=== PATIENT | male | born 1980 | race Caucasian/White ===

== ENCOUNTER 2024-09-16 16:37 | Emergency (ER) | payer OTHER, SELFPAY ==
--- OUTSIDE RECORDS SUMMARY | 2024-09-16 16:39 | XMS_ITS | Clinical Summary ---
Author Organization [facility] Address [address] [place] [id number] Care Team Providers Care Marine Electrician Helper Name Role Phone Susan Zavala MD Primary Care Provider [phone] Allergies No known active allergies Medications FLUoxetine (PROZAC) 40 MG capsuleIndications: Anxiety,Moderate episode of recurrent major depressive disorder (CMS/HCC) Take 1 capsule (40 mg total) by mouth daily. 30 capsule 2 2 Active atorvastatin (LIPITOR) 40 MG tabletIndications:M ixed hyperlipidemia Take 1 tablet (40 mg total) by mouth nightly at bedtime. 90 tablet 1 2 Active buPROPion SR (WELLBUTRIN SR) 150 MG 12 hr tabletIndications:T obacco use,Moderate episode of recurrent major depressive disorder (CMS/HCC) Take 1 tablet (150 mg total) by mouth 2 (two) times daily. 180 tablet 1 2 Active nicotine (NICODERM CQ) 21 MG/24HRIndications: Tobacco use Place 1 patch (21 mg total) onto the skin daily. 28 patch 11 2 Active Active Problems Problem Noted Date Diagnosed Date Prediabetes 06/16/2021 Anxiety 06/15/2021 Moderate episode of recurrent major depressive d isorder 06/15/2021 Overview (06/15/2021): Currently on fluoxetine. Denies any suicidal ideations or intentions to harm. Close follow-up with PCP. Primary hypertension 06/15/2021 Tobacco use 06/15/2021 Mixed hyperlipidemia 06/15/2021 Family History Medical History Relation Comments Cancer Maternal Grandmother Early Mother Relation Status Comments Maternal Grandmother Mother Social History Tobacco Use Types Packs/Day Years Used Date Smoking Tobacco: Every Day Cigarettes 1 24 Smokeless Tobacco: Never Tobacco Cessation:Ready to Q uit: Yes; Counseling Given: Yes Comments:counseled by Dr Zavala Alcohol Use Standard Drinks/Week Comments Not Currently 0 (1 standard drink = 0.6 oz pur e alcohol) PHQ-2 Answer Date Recorded PHQ-2 Score - If the patient scores above 3, please move on to questions 3-9 1 09/20/2021 Sex and Gender Information Value Date Recorded Sex Assigned at Not on file Legal Sex 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 Gender Identity Male 06/14/2021 4:21 PM CDT Sexual Orientation Straight 06/14/2021 4: 21 PM CDT Last Filed Vital Signs Vital Sign Reading Time Taken Comments Blood Pressure 120/77 12/22/2021 7:06 AM CDT Pulse 91 12/22/2021 7:06 AM CDT Temperature 37.1 C (98.7 F) 12/22/2021 7:06 AM CDT Respiratory Rate 18 12/22/2021 7:06 AM CDT Oxygen Saturation 98% 12/22/2021 7:06 AM CDT Inhaled Oxygen Concentration - - Weight 90.7 kg (200 lb) 12/22/2021 7:06 AM CDT Height 175.3 cm (5' 9) 12/22/2021 7:06 AM CDT Body Mass Index 29.53 12/22/2021 7:06 AM CDT Plan of Treatment Health Maintenance Due Date Last Done Comments DTaP, Tdap and Td Vaccines ( 1 - Tdap) 10/24/1998 Hepatitis B Vaccines (1 of 3 - 19+ 3-dose series) 10/24/1998 Pneumococcal Vaccine: Pediat rics (0 to 5 Years) and At-Risk Patients (6 to 49 Years) (1 of 2 - PCV) 10/24/1998 Annual Physical 06/15/2022 06/15/2021 COVID-19 Vaccine ( - 2023-2 5 season) 2023 Hepatitis C Completed 06/15/2021 HPV Vaccines Aged Out No longer eligi ble based on patient's age to complete this topic Meningococcal B Vaccine Aged Out No l onger eligible based on patient's age to complete this topic Meningococcal Vaccine Aged Out No maryann erlin eligible based on patient's age to complete this topic RSV Immunizations Under 20 Months Aged Out No longer eligible based on patient's age to complete this topic Procedures Procedure Name Priority Date/Time Associated Diagnosis Comments HEPATITIS C ANTIBODY Routine 06/15/2021 2:09 PM CDT Annual physical exam Encounter for medical examination to establish care General medical exam Encounter for hepatitis C screening test for low risk patient from Last 3 Months or Most Recently Relevant to Health Maintenance Results * HEPATITIS C ANTIBODY (06/15/2021 2:09 PM CDT) HEPATITIS C AB NON-REACTI VE NON-REACT CIRILO 06/15/2021 9:42 PM CDT [facility] Comment: ANTIBODIES TO HCV NOT DETECTED. DOES NOT EXCLUDE THE POSSIBILITY OF EXPOSURE TO HCV. 06/15/2021 2:09 PM CDT Susan Zavala MD LABORATORY Final Result [facility] [address] [place] [address], [id number] from Last 3 Months or Most Recently Relevant to Health Maintenance Insurance [employer] Care Teams Marine Electrician Helper Relationship Specialty Start Date End Date Susan Zavala MD [address] [facility] [address] [place] [address] PCP - General INTERNAL MEDICINE 06/15/21
--- OUTSIDE RECORDS SUMMARY | 2024-09-16 16:39 | XMS_ITS | Encounter Summary ---
Author Organization [facility] Address [address] [place] [id number] Care Team Providers Care Cosmetology Educator Name Role Phone Susan Zavala MD Primary Care Provider [phone] Encounter Details Date Type Department Care Team (Late st Contact Info) Description 06/13/2022 [employer] Message [facility] Patient Accounts [address] [place] [address] [facility] Monthly Credit Card Payment Social History Tobacco Use Types Packs/Day Years Used Date Smoking Tobacco: Every Day Cigarettes 1 24 Smokeless Tobacco: Never Comments:counseled by Dr Zhanna magana Alcohol Use Standard Drinks/Week Comments Not Currently 0 (1 standard drink = 0.6 oz pur e alcohol) PHQ-2 Answer Date Recorded PHQ-2 Score - If the patient scores above 3, please move on to questions 3-9 1 09/20/2021 Sex and Gender Information Value Date Recorded Sex Assigned at Not on file Legal Sex Male 9:12 AM DISABILITY COORDINATOR Gender Identity Male 06/14/2021 4:21 PM CDT Sexual Orientation Straight 06/14/2021 4: 21 PM CDT documented as of this encounter Plan of Treatment Not on file documented as of this encounter Visit Diagnoses Not on filedocumented in this encounter Additional Health Concerns Assessment Noted Time PHQ-9 Depression Total Score: 10 022 1:58 PM CDT documented as of this encounter Care Teams Cosmetology Educator Relationship Specialty Start Date End Date Susan Zavala MD [address] [facility] [address] [place] [address] PCP - General INTERNAL MEDICINE 06/15/21 documented as of this encounter
--- OUTSIDE RECORDS SUMMARY | 2024-09-16 16:39 | XMS_ITS | Encounter Summary ---
Author Organization [facility] Address [address] [place] [address] Care Team Providers Care Fire Sprinkler Fitter Name Role Phone Susan Zavala MD Primary Care Provider [phone] Encounter Details Date Type Department Care Team (Late st Contact Info) Description 05/12/2022 [employer] Message [facility] Patient Accounts [address] [place] [address] [facility] Card Payment Social History [...] on file Legal Sex Male 9:12 AM FOREPART RASPER Gender Identity Male 06/14/2021 4:21 PM CDT Sexual Orientation Straight 06/14/2021 4: 21 PM CDT documented as of this encounter Plan of Treatment Not on file documented as of this encounter Visit Diagnoses Not on filedocumented in this encounter Additional Health Concerns Assessment Noted Time PHQ-9 Depression Total Score: 10 022 1:58 PM CDT documented as of this encounter Care Teams Fire Sprinkler Fitter Relationship Specialty Start Date End Date Susan Zavala MD [address] [facility] [address] [place] [address] PCP - General INTERNAL MEDICINE 06/15/21 documented as of this encounter
--- NOTE | 2024-09-16 16:45 | ED.GENADULT ---
HPI - General Adult General Chief complaint: Skin/Abscess/Foreign Body Stated complaint: Bee Sting/Left Arm Time Seen by Provider: 09/16/24 16:55 Source: patient, RN notes reviewed and old records reviewed Mode of arrival: ambulatory Limitations: no limitations History of Present Illness HPI narrative: 43-year-old male presents to the [facility] with redness, swelling to the left upper arm. States that he was mowing his grass yesterday when a black insect stung or bit him. No treatment prior to arrival has full range of motion. Area is blanchable. Related Data Allergies Allergy/AdvReac Type Severity Reaction Status Date / Time No Known Drug Allergies Allergy Mild Unknown Verified 09/16/24 16:53 Review of Systems Review of Systems: All systems reviewed & are unremarkable except as noted in HPI and below Constitutional: Constitutional: Reports no additional constitutional complaints ENT: Reports system reviewed and no additional complaints, except as documented Cardiovascular: Cardiovascular: Reports no additional cardiovascular complaints, Denies chest pain and Denies dyspnea Respiratory: Respiratory: Reports no additional respiratory complaints, Denies chest congestion, Denies cough and Denies dyspnea Musculoskeletal: Musculoskeletal: Reports no additional musculoskeletal complaints Integumentary/Breasts: Skin/Breast: Reports as per HPI PMFSH Comments At the time of my signature, I reviewed and agree with the nursing past medical, surgical, social, and family history. There is no relevant family history pertinent to the patient complaint. Exam Const: General: cooperative, healthy appearing, comfortable, no acute distress, well developed, alert and well nourished Nutritional Appearance: well nourished Orientation/consciousness: patient oriented x3 Limitations: no limitations HENMT: Head: normal to inspection Mouth: Yes Normal oral and palatal mucosa present, Yes lip normal, Yes tongue normal and Yes moist mucous membranes Eyes: General: appearance normal, both eyes and all related structures Alignment and Position: alignment normal Neck: Neck: normal visual inspection, full ROM, no lymphadenopathy and no meningeal signs Chest: Chest palpation & inspection: normal inspection of the chest Resp: Effort & Inspection: normal respiratory effort and able to speak in complete sentences Auscultation: clear to auscultation bilaterally, no crackles, no rales, no rhonchi and no wheezes Cardio: Rate: regular rate Skin: General skin exam: normal color and no rashes or lesions noted Other: Left upper arm, elbow and forearm medial aspect, erythema, mild swelling noted. Insect bite or sting to the medial upper arm. area is blanchable. Neuro: General: patient oriented x3, gait normal, moves all extremities and no meningeal signs Cognition (Neuro): normal cognition Speech: normal speech Gait exam (Neuro): Normal gait present Extrem: General: normal to inspection, full ROM, capillary refill normal and normal gait Left upper extremity: full ROM and normal capillary refill Psych: Appearance: grossly normal and well kempt Mental Status: mental status grossly normal Speech and movement: Normal speech and movement present and Clear speech present Affect: normal affect Attitude: cooperative Course Course Level of Care: Express Care Visit Vital Signs Vital signs: Vital Signs Temperature 98.3 F 09/16/24 16:48 Pulse Rate 110 H 09/16/24 16:48 Respiratory Rate 20 09/16/24 16:48 Blood Pressure 168/101 H 09/16/24 16:48 Pulse Oximetry 99 09/16/24 16:48 Oxygen Delivery Room Air 09/16/24 16:48 Temperature 98.3 F 09/16/24 16:48 Pulse Rate 110 H 09/16/24 16:48 Respiratory Rate 20 09/16/24 16:48 Blood Pressure 168/101 H 09/16/24 16:48 Pulse Oximetry 99 09/16/24 16:48 Oxygen Delivery Room Air 09/16/24 16:48 Reviewed Medical Decision Making MDM Narrative Medical decision making narrative: Patient sitting comfortably in exam room. Nontoxic, vitals stable. Patient in no acute distress Patient presents with concerns an insect sting or bite. States it occurred yesterday. No treatment prior to arrival. Area is most likely a localized allergic reaction to the sting. Patient is appropriate for outpatient treatment and follow-up. Discussed his blood pressure is elevated, needs to follow-up with primary care provider Discharge instructions reviewed with patient, as well as provided in writing per nursing staff. The instructions also include specific and strict return/GO TO THE ER as well as f/u information. All questions have been answered, and the patient deny any further questions with discharge and discharge plan. Some parts of this dictation were generated by voice recognition software and may contain typographical and/or grammatical inaccuracies. Differential Diagnosis Differential Diagnosis: cellulitis localized reaction, insect sting, insect bite Medical Records Medical records reviewed: Yes I reviewed the external patient's medical records. Vital Signs Vital Signs: Vital Signs Temperature 98.3 F 09/16/24 16:48 Pulse Rate 110 H 09/16/24 16:48 Respiratory Rate 20 09/16/24 16:48 Blood Pressure 168/101 H 09/16/24 16:48 Pulse Oximetry 99 09/16/24 16:48 Oxygen Delivery Room Air 09/16/24 16:48 Temperature 98.3 F 09/16/24 16:48 Pulse Rate 110 H 09/16/24 16:48 Respiratory Rate 20 09/16/24 16:48 Blood Pressure 168/101 H 09/16/24 16:48 Pulse Oximetry 99 09/16/24 16:48 Oxygen Delivery Room Air 09/16/24 16:48 Reviewed Lab Data Lab results reviewed: Yes I reviewed the patient's lab results. Labs: Reviewed Critical Care Time Critical Care Time Critical Care Time: No Discharge Plan Discharge Clinical Impression: Accidental insect sting, Allergic to insect bites and stings Patient Disposition: Home Condition: Stable Instructions: Antibiotic Form, Insect Bite or Sting (ED), General Allergic Reaction (ED) Additional Instructions: The most important part of your care is follow up with Primary care provider. Today your blood pressure was 168/101 it is important to establish primary care provider for further evaluation of your elevated blood pressure Take Benadryl 25-50 mg every 8 hours for itching Take Zyrtec every day for 7 days Take Pepcid 20mg daily for 7 days Take the steroids starting tonight, taking steroids can cause increased anxiety, insomnia. it is recommended you normally take this 1st thing in the morning Avoid hot showers, Take cool showers. Hot showers will make rashes worse apply ice packs every 2-3 hours for 15-20 minutes while awake apply hydrocortisone cream for the itching Go to the ER for new or worsening symptoms such as shortness of breath. Patient Language: [place] Island[place] Prescriptions: New prednisone 50 mg tablet 50 mg PO DAILY Qty: 5 0RF Follow-up/Referrals: PHYSICIAN,HOG CONFINEMENT SYSTEM MANAGER [Primary Care Provider] - Wendie Bradshaw DO [Physician] - Time of Disposition: 17:01
[2024-09-16 16:48] VITALS: BP 168/101; PULSE 110; RESP 20; TEMP 36.8; O2SAT 99
== END 2024-09-16 17:06 | disposition home or self-care (01) ==
PROVIDERS: Emergency Provider Nurse Practitioner
DX: T63.481A Toxic effect of venom of other arthropod, accidental (unintentional), initial encounter (principal)
CPT/HCPCS: 99203; G0463